=== PATIENT | female | born 1960 | race American Indian/Alaskan Native ===

== ENCOUNTER 2016-11-27 09:47 | Emergency (ER) | payer OTHER ==
[2016-11-27] MEDS ORDERED: TORADOL IM ONE (14:11)
--- NOTE | 2016-11-27 14:30 | Emergency Department Report ---
ED Back Pain/Injury HPI - General Chief Complaint: Back Pain/Injury Stated Complaint: BACK PAIN Time Seen by Provider: 11/27/16 14:11 Source: patient Limitations: No Limitations - History of Present Illness Initial Comments: 56-year-old female past medical history sciatica presents with complaint of one month of lower back pain radiating down her right buttock and into the right upper thigh. Patient states that this pain is classic for sciatica. Patient states that approximately one month ago she was having rough intercourse sexually with her partner and developed back pain afterward. States that several years ago she experienced sciatica with very similar symptoms. Patient is ambulatory denies any saddle paresthesias denies any bladder or bowel incontinence. Patient is also requesting to be tested for chlamydia and gonorrhea denies any fevers chills abdominal pain or vaginal discharge. Last menstrual period started today. She is ambulatory without assistance. States she has been taking [id number] Aleve with minimal relief of pain MD Complaint: back pain Onset/Timin -: month(s) Similar Symptoms Previously: Yes Place: home Radiation: buttocks Severity: moderate Severity scale (0 -10): 6 Quality: aching Consistency: constant Improves With: none Worsens With: none Associated Symptoms: denies other symptoms - Related Data Previous Rx's Medication Instructions Recorded Last Taken Type Cyclobenzaprine [Flexeril] 10 mg PO TID PRN #12 tablet 11/27/16 Unknown Rx Naproxen [Naprosyn TAB] 500 mg PO BID PRN #30 tablet 11/27/16 Unknown Rx Allergies Allergy/AdvReac Type Severity Reaction Status Date / Time Sulfa (Sulfonamide Allergy Rash Verified 11/27/16 09:53 Antibiotics) ED Review of Systems ROS: Stated complaint: BACK PAIN Other details as noted in HPI Constitutional: denies: chills, fever Eyes: denies: eye pain, eye discharge, vision change ENT: denies: ear pain, throat pain Respiratory: denies: cough, shortness of breath, wheezing Cardiovascular: denies: chest pain, palpitations Endocrine: no symptoms reported Gastrointestinal: denies: abdominal pain, nausea, diarrhea Genitourinary: denies: urgency, dysuria, discharge Musculoskeletal: back pain. denies: joint swelling, arthralgia Skin: denies: rash, lesions Neurological: denies: headache, weakness, paresthesias Psychiatric: denies: anxiety, depression Hematological/Lymphatic: denies: easy bleeding, easy bruising ED Past Medical Hx - Past Medical History Previous Medical History?: Yes Hx Sickle Cell Disease: (sickle cell trait) Additional medical history: back - Surgical History Past Surgical History?: No - Social History Smoking Status: Current Every Day Smoker Substance Use Type: Alcohol, Non Opiate Pain, Prescribed - Medications Home Medications: Home Medications Medication Instructions Recorded Confirmed Last Taken Type Cyclobenzaprine [Flexeril] 10 mg PO TID PRN #12 tablet 11/27/16 Unknown Rx Naproxen [Naprosyn TAB] 500 mg PO BID PRN #30 tablet 11/27/16 Unknown Rx ED Physical Exam - General Limitations: No Limitations General appearance: alert, in no apparent distress - Head Head exam: Present: atraumatic, normocephalic - Eye Eye exam: Present: normal appearance, PERRL, EOMI - ENT ENT exam: Present: mucous membranes moist - Neck Neck exam: Present: normal inspection - Respiratory Respiratory exam: Present: normal lung sounds bilaterally. Absent: respiratory distress - Cardiovascular Cardiovascular Exam: Present: regular rate, normal rhythm. Absent: systolic murmur, diastolic murmur, rubs, gallop - GI/Abdominal GI/Abdominal exam: Present: soft, normal bowel sounds - Extremities Exam Extremities exam: Present: normal inspection - Back Exam Back exam: Present: normal inspection, full ROM (back flexion and extension intact, there is no midline spinal tenderness on exam) - Expanded Back Exam Expanded Back exam: Sciatic Notch Tenderness: Right, Positive Straight Leg Raise: Right - Neurological Exam Neurological exam: Present: alert, oriented X3, CN II-XII intact, normal gait - Expanded Neurological Exam Expanded Patient oriented to: Present: person, place, time Motor strength exam: RUE: 5, LUE: 5, RLE: 5, LLE: 5 DTR: knee (R): 3+, knee (L): 3+, ankle (R): 3+, ankle (L): 3+ Best Eye Response (Appling): (4) open spontaneously Best Motor Response (Smith): (6) obeys commands Best Verbal Response (Appling): (5) oriented Appling Total: 15 - Psychiatric Psychiatric exam: Present: normal affect, normal mood - Skin Skin exam: Present: warm, dry, intact, normal color. Absent: rash ED Course Vital Signs 11/27/16 11/27/16 09:53 15:23 Temperature 98.3 F 98.6 F Pulse Rate 91 H 68 Respiratory 20 18 Rate Blood Pressure 126/74 Blood Pressure 138/68 [Right] O2 Sat by Pulse 97 99 Oximetry ED Medical Decision Making - Medical Decision Making A/P: Right-sided sciatica, concern for STD exposure 1-patient has classic symptoms of sciatica which she has experienced in the past. Will prescribe naproxen and Flexeril when necessary short course 2-we prep sent negative, GC culture sent. Patient elected to be treated empirically. States she has been sexually promiscuous lately. I advised her to follow-up for other routine STD testing with her primary care doctor or to return to the ED for any other symptoms including vaginal discharge or abnormal rash 3-patient has no clinical signs of cord compression fully ambulatory no complaint of saddle paresthesias bladder or bowel incontinence strength is 5 out of 5 lower extremities and deep tendon reflexes are intact. 4- follow up with primary care and orthopedics Critical care attestation.: If time is entered above; I have spent that time in minutes in the direct care of this critically ill patient, excluding procedure time. ED Disposition Clinical Impression: Sciatica Qualifiers: Laterality: bilateral Qualified Code(s): M54.31 - Sciatica, right side Lower back pain Qualifiers: Chronicity: acute Back pain laterality: bilateral Sciatica presence: with sciatica Sciatica laterality: sciatica of right side Qualified Code(s): M54.41 - Lumbago with sciatica, right side Disposition: TO HOME OR SELFCARE Is pt being admited?: No Does the pt Need Aspirin: No Condition: Stable Instructions: Safe Sex (ED), Sciatica (ED), Lumbar Radiculopathy (ED), Piriformis Syndrome (ED) Prescriptions: Cyclobenzaprine [Flexeril] 10 mg PO TID PRN #12 tablet PRN Reason: Muscle Spasm Naproxen [Naprosyn TAB] 500 mg PO BID PRN #30 tablet PRN Reason: Pain Referrals: BULMARO REDMOND MD [Referring] - 3-5 Days KAPIL NAIR MD [Staff Physician] - 3-5 Days Forms: Work/School Release Form(ED)
[2016-11-27] MEDS ORDERED: XYLOCAINE 1% MPF 5 mL INFILTRATI ONE (14:36)
[2016-11-27] MEDS ORDERED: ROCEPHIN IM ONE (14:36)
[2016-11-27] MEDS ORDERED: ZITHROMAX PO ONE (14:36)
[2016-11-27 14:54] LABS: Bacteria,Urine 1+ /HPF (Negative); Bilirubin,Urine NEG (Negative); Blood,Urine MOD (Negative); Ketones,Urine NEG (Negative); Leukocyte Esterase,Urine NEG (Negative); Mucus,Urine FEW /HPF; Nitrite,Urine NEG (Negative); Protein,Urine <15 mg/dL mg/dL (Negative); Urobilinogen,Urine < 2.0 mg/dL (<2.0)
[2016-11-27 15:24] VITALS: BP 138/68
== END 2016-11-27 15:22 | disposition home or self-care (01) ==
LOC: ED 09:47
DX: M54.41 Lumbago with sciatica, right side (principal); F17.200 Nicotine dependence, unspecified, uncomplicated; Z88.2 Allergy status to sulfonamides
CPT/HCPCS: 81001; 81025; 87086; 87210; 87591; 96372; 99283; J0696; J1885

== ENCOUNTER 2019-07-23 17:38 | Emergency (ER) | payer BC, OTHER ==
--- NOTE | 2019-07-23 17:47 | Emergency Department Report ---
Blank Doc - Documentation Documentation: 58-year-old female that presents with cough with body aches. Stated has chest pains when coughing. This initial assessment/diagnostic orders/clinical plan/treatment(s) is/are subject to change based on patient's health status, clinical progression and re- assessment by fellow clinical providers in the ED. Further treatment and workup at subsequent clinical providers discretion. Patient/guardians urged not to elope from the ED as their condition may be serious if not clinically assessed and managed. Initial orders include: 1- Patient sent to [facility] for further evaluation and treatment 2- CXR
--- NOTE | 2019-07-23 18:17 | XRay Report ---
CHEST 2 VIEWS INDICATION: cough. COMPARISON: None FINDINGS: Support devices: None. Heart: Within normal limits. Lungs/pleura: No acute air space or interstitial disease. No pneumothorax. Additional findings: None. IMPRESSION: 1. No acute findings. Signer Name: Vincent Mcnally MD Signed: 07/23/2019 6:13 PM Workstation Name: [id number]
[2019-07-23] MEDS ORDERED: METOCLOPRAMIDE 10 MG TAB PO ONE (21:02)
[2019-07-23] MEDS ORDERED: diphenhydrAMINE 25 MG CAP PO ONE (21:02)
[2019-07-23] MEDS ORDERED: predniSONE 20 MG TAB PO ONE (21:02)
[2019-07-23] MEDS ORDERED: ACETAMINOPHEN 500 MG TAB PO ONE (21:02)
[2019-07-23 21:30] LABS: Basophils # (Auto) 0.1 K/mm3 (0.0-0.1); Basophils % (Auto) 1.2 % (0.0-1.8); Eosinophils # (Auto) 0.3 K/mm3 (0.0-0.4); Eosinophils % (Auto) 2.8 % (0.0-4.3); Hematocrit 42.2 % (30.3-42.9); Hemoglobin 13.8 gm/dl (10.1-14.3); Lymphocytes # (Auto) 2.9 K/mm3 (1.2-5.4); Lymphocytes % (Auto) 31.9 % (13.4-35.0); Mean Corpuscular HGB Conc 33 % (30-34); Mean Corpuscular Volume 89 fl (79-97); Monocytes # (Auto) 0.7 K/mm3 (0.0-0.8); Monocytes % (Auto) 7.3 % (0.0-7.3); Platelet Count 215 K/mm3 (140-440); Red Blood Count 4.75 M/mm3 (3.65-5.03); Red Cell Distribution Width 14.9 % (13.2-15.2)
[2019-07-23 21:36] VITALS: BP 129/92
[2019-07-23 21:54] LABS: Alanine Aminotransferase 8 units/L (7-56); Albumin 4.4 g/dL (3.9-5); BUN/Creatinine Ratio 10; Blood Urea Nitrogen 6 mg/dL (7-17); Calcium 9.4 mg/dL (8.4-10.2); Hemolysis Index 44
[2019-07-23 22:01] LABS: Bilirubin,Urine NEG (Negative); Blood,Urine NEG (Negative); Color,Urine Yellow (Yellow); Mucus,Urine FEW /HPF; Urobilinogen,Urine < 2.0 mg/dL (<2.0)
--- NOTE | 2019-07-23 23:00 | Emergency Department Report ---
ED General Adult HPI - General Chief complaint: Abdominal Pain Stated complaint: CHEST PAIN, SNEEZING,ABD PAIN Time Seen by Provider: 07/23/19 17:45 Source: patient Mode of arrival: Ambulatory Limitations: No Limitations - History of Present Illness Initial comments: Mr. Rain is a 58-year-old female fethat presents with cough with body aches. States has chest pains when coughing. pt states fever no fever noted in triage today. pt denies n/v , no sob, no diaphoresis. She states symptoms are exacerbating frontal headache 5/10 and sinus pressure. there is no dizziness, or light headedness, no loss or decrease in vision, no photophobia. pt is tolerati ng po hydration. Onset/Timin -: week(s) Location: head, chest, abdomen Severity scale (0 -10): 5 Quality: aching Consistency: constant Improves with: none Worsens with: movement, other (activity) Associated Symptoms: chest pain (with cough), cough, fever/chills, headaches. denies: diaphoresis, malaise, nausea/vomiting, shortness of breath, weakness - Related Data Previous Rx's Medication Instructions Recorded Last Taken Type Cyclobenzaprine [Flexeril] 10 mg PO TID PRN #12 tablet 11/27/16 Unknown Rx Naproxen [Naprosyn TAB] 500 mg PO BID PRN #30 tablet 11/27/16 Unknown Rx Ibuprofen [Motrin 800 MG tab] 800 mg PO Q8HR PRN #30 tablet 07/23/19 Unknown Rx Nitrofurantoin Sandoval/M-Cryst 100 mg PO BID 7 Days #14 capsule 07/23/19 Unknown Rx [Macrobid CAP] Allergies Allergy/AdvReac Type Severity Reaction Status Date / Time Sulfa (Sulfonamide Allergy Rash Verified 07/23/19 17:41 Antibiotics) ED Review of Systems ROS: Stated complaint: CHEST PAIN, SNEEZING,ABD PAIN Other details as noted in HPI Constitutional: denies: chills, fever Eyes: denies: eye pain, eye discharge, vision change ENT: ear pain, throat pain, congestion Respiratory: denies: cough, shortness of breath, wheezing Cardiovascular: denies: chest pain, palpitations Endocrine: no symptoms reported Gastrointestinal: denies: abdominal pain, nausea, diarrhea Genitourinary: denies: urgency, dysuria, frequency, hematuria, discharge Musculoskeletal: denies: back pain, joint swelling, arthralgia Skin: denies: rash, lesions Neurological: headache. denies: weakness, numbness, paresthesias, confusion, vertigo Psychiatric: denies: anxiety, depression Hematological/Lymphatic: denies: easy bleeding, easy bruising ED Past Medical Hx - Past Medical History Previous Medical History?: No Hx Sickle Cell Disease: (sickle cell trait) Additional medical history: back - Surgical History Past Surgical History?: No - Social History Smoking Status: Current Every Day Smoker Substance Use Type: None - Medications Home Medications: Home Medications Medication Instructions Recorded Confirmed Last Taken Type Cyclobenzaprine [Flexeril] 10 mg PO TID PRN #12 tablet 11/27/16 Unknown Rx Naproxen [Naprosyn TAB] 500 mg PO BID PRN #30 tablet 11/27/16 Unknown Rx Ibuprofen [Motrin 800 MG tab] 800 mg PO Q8HR PRN #30 tablet 07/23/19 Unknown Rx Nitrofurantoin Sandoval/M-Cryst 100 mg PO BID 7 Days #14 capsule 07/23/19 Unknown Rx [Macrobid CAP] ED Physical Exam - General Limitations: No Limitations General appearance: alert, in no apparent distress - Head Head exam: Present: normocephalic, normal inspection - Eye Eye exam: Present: normal appearance, PERRL, EOMI Pupils: Present: normal accommodation - ENT ENT exam: Present: normal orophraynx, mucous membranes moist, TM's normal bilaterally, normal external ear exam - Neck Neck exam: Present: normal inspection, full ROM. Absent: tenderness, lymphadenopathy, thyromegaly - Expanded Neck Exam Expanded Neck exam: Absent: tenderness - Respiratory Respiratory exam: Present: normal lung sounds bilaterally, chest wall tenderness. Absent: respiratory distress, wheezes, rales, rhonchi, stridor - Cardiovascular Cardiovascular Exam: Present: regular rate, normal rhythm, normal heart sounds. Absent: systolic murmur, diastolic murmur, rubs, gallop - GI/Abdominal GI/Abdominal exam: Present: soft, normal bowel sounds. Absent: distended, tenderness, guarding, rebound, rigid, bruit, hernia - Rectal Rectal exam: Present: deferred - Extremities Exam Extremities exam: Present: normal inspection, full ROM. Absent: tenderness - Back Exam Back exam: Present: normal inspection, tenderness. Absent: CVA tenderness (R), muscle spasm, vertebral tenderness - Neurological Exam Neurological exam: Present: alert, oriented X3, CN II-XII intact, normal gait - Psychiatric Psychiatric exam: Present: normal affect, normal mood - Skin Skin exam: Present: warm, dry, intact, normal color. Absent: rash ED Course Vital Signs 07/23/19 07/23/19 17:46 21:35 Temperature 97.8 F 98.2 F Pulse Rate 90 89 Respiratory 20 18 Rate Blood Pressure 159/104 Blood Pressure 129/92 [Left] O2 Sat by Pulse 96 100 Oximetry ED Medical Decision Making - Lab Data Result diagrams: 07/23/19 21:13 07/23/19 21:13 Labs 07/23/19 07/23/19 07/23/19 21:13 21:13 21:40 WBC 9.0 RBC 4.75 Hgb 13.8 Hct 42.2 MCV 89 MCH 29 MCHC 33 RDW 14.9 Plt Count 215 Lymph % (Auto) 31.9 Sandoval % (Auto) 7.3 Eos % (Auto) 2.8 Baso % (Auto) 1.2 Lymph # 2.9 Sandoval # 0.7 Eos # 0.3 Baso # 0.1 Seg Neutrophils % 56.8 Seg Neutrophils # 5.1 Sodium 142 Potassium 4.3 Chloride 104.8 Carbon Dioxide 21 L Anion Gap 21 BUN 6 L Creatinine 0.6 L Estimated GFR > 60 BUN/Creatinine Ratio 10 Glucose 101 H Calcium 9.4 Total Bilirubin 0.60 AST 15 ALT 8 Alkaline Phosphatase 65 Troponin T < 0.010 Total Protein 6.7 Albumin 4.4 Albumin/Globulin Ratio 1.9 Urine Color Yellow Urine Turbidity Clear Urine pH 5.0 Ur Specific Deary 1.013 Urine Protein 100 mg/dl Urine Glucose (UA) 50 Urine Ketones Neg Urine Blood Neg Urine Nitrite Neg Urine Bilirubin Neg Urine Urobilinogen < 2.0 Ur Leukocyte Esterase Sm Urine WBC (Auto) 7.0 H Urine RBC (Auto) 2.0 U Epithel Cells (Auto) 4.0 Urine Mucus Few - EKG Data EKG shows normal: sinus rhythm, axis, intervals, QRS complexes, ST-T waves Rate: normal - EKG Data When compared to previous EKG there are: previous EKG unavailable Interpretation: LVH (NSR, No ST Elevated LA, LVH, ekg iterp by ed attending. ) - Radiology Data Radiology results: report reviewed, image reviewed Findings Reporting MD: Vincent Mcnally Dictation Time: July 23, 2019 17:13 Transcr iptionist: Not available Job Placement Specialist Date: CHEST 2 VIEWS INDICATION: cough. COMPARISON: None FINDINGS: Support devices: None. Heart: Within normal limits. Lungs/pleura: No acute air space or interstitial disease. No pneumothorax. Additional findings: None. IMPRESSION: 1. No acute findings. - Medical Decision Making Chest x-ray normal no infiltrates no opacities. Heart score 0. Troponin less than 0.01., UA noted for UTI, headache is resolved with medications given in ED. will DC to home in stable condition at this time this is UTI . plan: macrobid, ibuprofen follow up with pcp in 2-3 days , hydrate as discussed ,return to ed if symptoms worsen. pt verbalized agreement and understanding of discharge plan. Critical care attestation.: If time is entered above; I have spent that time in minutes in the direct care of this critically ill patient, excluding procedure time. ED Disposition Clinical Impression: Viral syndrome UTI (urinary tract infection) Qualifiers: Urinary tract infection type: acute cystitis Hematuria presence: without hematuria Qualified Code(s): N30.00 - Acute cystitis without hematuria Disposition: DC-01 TO HOME OR SELFCARE Is pt being admited?: No Does the pt Need Aspirin: No Condition: Stable Instructions: Urinary Tract Infection in Women (ED), Viral Syndrome (ED) Prescriptions: Nitrofurantoin Sandoval/M-Cryst [Macrobid CAP] 100 mg PO BID 7 Days #14 capsule Ibuprofen [Motrin 800 MG tab] 800 mg PO Q8HR PRN #30 tablet PRN Reason: pain Referrals: JAYDEN PAULSON MD [Staff Physician] - 3-5 Days Forms: Work/School Release Form(ED) Time of Disposition: 23:20
== END 2019-07-23 23:30 | disposition home or self-care (01) ==
LOC: ED 17:38
DX: N39.0 Urinary tract infection, site not specified (principal); B97.89 Other viral agents as the cause of diseases classified elsewhere; D57.3 Sickle-cell trait; F17.200 Nicotine dependence, unspecified, uncomplicated; Z88.2 Allergy status to sulfonamides; Z79.1 Long term (current) use of non-steroidal anti-inflammatories (NSAID); Z79.899 Other long term (current) drug therapy
CPT/HCPCS: 36415; 71046; 80053; 81001; 84484; 85025; 93005; 93010; 99284; J7512